=== PATIENT | female | born 1950 | race African-American/Black ===

== ENCOUNTER 2023-08-25 11:27 | Emergency (ER) | payer MEDICARE, MEDICAID ==
[~2023-08-25] VITALS: Ht 157.5 cm; Wt 59.0 kg
[~2023-08-25 11:27] MED LIST: ALBU18HF2 IH; CALC-824 PO; COR12 PO; FLOV44 IH; LOSA100T33 PO; SPIR25TA PO
[2023-08-25 11:31] VITALS: BP 126/67; PULSE 74; TEMP 98.4; O2SAT 100
== END 2023-08-25 13:14 | disposition left against medical advice (07) ==
LOC: ER 12:58
DX: R04.1 Hemorrhage from throat (principal); Z53.21 Procedure and treatment not carried out due to patient leaving prior to being seen by health care provider
CPT/HCPCS: 99281